=== PATIENT | male | born 1965 | race Caucasian/White ===

== ENCOUNTER 2016-12-11 19:52 | Inpatient (IN) | payer OTHER ==
[~2016-12-11] VITALS: Ht 175.3 cm; Wt 54.4 kg
--- NOTE | ~2016-12-11 | HC ---
[facility] [place] [address] CONSULTATION Name: THANIA BATES Room #: 211-P [facility] IN M.R.#: [id number] Admission: 12/11/16 Attend Phys: Jose Ames MD Discharge: 12/12/16 Date of : 65 Report #: [id number] THIS REPORT FOR: //name// CC: JERRELL physician/PCP Jose Ames DATE OF SERVICE: 12/12/2016 HISTORY OF PRESENT ILLNESS: The patient is a 51-year-old single white male who I was asked to see in the hospital today after he was noted to have elevated blood pressure. The history is obtained from the patient as well as some old records. He has a long history of peripheral arterial disease. He has had a history of peripheral arterial disease and previous abdominal aortic aneurysm. He has multiple risk factors for coronary artery disease, but never had demonstrated CAD. He had a nuclear stress test back in 2009 that showed no evidence of ischemia or infarction with ejection fraction 79%. He has had multiple procedures by Dr. Gunderson. He had previous repair of an abdominal aortic aneurysm using a stent graft and common iliac graft by Dr. Gunderson back in 2009. In 2012, he underwent bilateral lower extremity angiogram by Dr. Gunderson that showed patent grafts. On the left side, his common femoral showed a focal high-grade stenosis with dissection, but did not limit a flow. It was decided not to intervene at that time. Dr. Gunderson has told the patient most likely he will need additional surgery in the future. He does complain of exertional leg pain after one block. He has had no rest pain. He does have occasional chest tightness. It usually occurs with exertion. He denies any shortness of breath, palpitations, syncope, or edema. He apparently was just admitted to [facility] 2 weeks ago with elevated blood pressure. He was sent home. The patient states that he was last here in August of this year with lightheadedness. He was found to be hypertensive. The patient left the floor to smoke and never came back. He was signed out AMA. The patient came to the emergency room last night complaining of his headache being elevated. He states he had a headache. He also noticed some chest tightness. He was admitted for further evaluation and treatment. PAST MEDICAL HISTORY: Significant for stents placed in his renal arteries. He has a history of hypertension and hyperlipidemia. PAST SURGICAL HISTORY: His additional surgical history otherwise includes no other major surgical procedures. CURRENT MEDICATIONS: Apparently consists of carvedilol, nifedipine, Flomax, Pletal, aspirin, pravastatin, and Inspra. ALLERGIES: He has no known drug allergies. FAMILY HISTORY: Negative for heart disease. [facility] [address] [place] [address] CONSULTATION Name: THANIA BATES Room #: 211-P [facility] IN M.R.#: [id number] Admission: 12/11/16 Attend Phys: Jose Ames MD Discharge: 12/12/16 Date of : 65 Report #: [id number] SOCIAL HISTORY: He is . He is on disability. Lives with a daughter here in [place], [place]. Smokes a pack of cigarettes a day, used to work in construction. No history of alcohol use or drug abuse. REVIEW OF SYSTEMS: He apparently had left-sided weakness in the past, told he had a TIA. He denies chronic cough. He does have a history of indigestion. He has chronic kidney disease. No cancer. No psychiatric illness. PHYSICAL EXAMINATION: GENERAL: Revealed a middle-aged male, lying in bed, he appeared in no distress. VITAL SIGNS: He had a blood pressure last night at 250/128, pulse 70, he was afebrile. HEENT: He was anicteric. Conjunctivae are pink. Mucous membranes are moist. NECK: Veins do not appear distended, bilateral carotid bruits. CHEST: Clear to auscultation. HEART: Regular rate and rhythm. ABDOMEN: Soft, nontender. Bilateral bruits were noted. EXTREMITIES: Had no edema. Posterior tibial pulse 1+ bilaterally. SKIN: Cool and dry. NEUROLOGIC: Nonfocal. His ECG showed a sinus rhythm, left ventricular hypertrophy, repolarization changes. His workup in the emergency room last night included a chest x-ray that showed normal heart size, clear lung guardado. He had previous carotid Doppler study in 2009, that showed no significant internal carotid artery stenosis. He had lab work, sodium 139, creatinine 2.2. Liver function studies were normal. Troponins all 0.04. In September, cholesterol 228, triglyceride 112, HDL 39, LDL 167. White blood cell count 12.7, hemoglobin 11.3. IMPRESSION AND RECOMMENDATIONS: 1. Hypertension. The patient has a long history of hypertension. He was just admitted to [place] 2 weeks ago with elevated blood pressure. The patient currently appears to be on a beta sam and calcium sam. I would consider adding clonidine. 2. Hyperlipidemia. The patient is on a statin drug. 3. Peripheral arterial disease. The patient with persistent claudication. 4. Chronic kidney disease. 5. Tobacco abuse. 6. Bilateral carotid bruits. <ELECTRONICALLY SIGNED> By: Caio Calhoun MD, [facility] 12/13/16 0735 0830 2230 Caio Calhoun MD, FACC /nt
--- NOTE | ~2016-12-11 | EKG ---
[place] [address] [facility] [place] [address] ELECTROCARDIOGRAM REPORT Name: JAMES BATES Room #: 211-P ADM IN M.R.#: [id number] Admission: 12/11/16 Attend Phys: Jose Ames MD Discharge: Date of : 65 Report #: [id number] THIS REPORT FOR: //name// [facility] ED Test Date: 2016-12-11 Test Time: 20:01:25 Pat Name: JAMES BATES Department: Room: 211 Gender: M [employer] Supervisor: KIET : 1965 Requested By: James Mcadams Order Number: [id number] MD: Trace Haq Measurements Intervals [place] Rate: 75 P: 78 W[place]: 182 QRS: 70 QRSD: 99 T: 208 QT: 357 QTc: 399 Interpretive Statements Sinus rhythm JOSUE, consider biatrial enlargement Probable LVH with secondary repol abnrm Anterior ST elevation, probably due to LVH Compared to ECG 09/13/2016 18:39:48 Left ventricular hypertrophy now present Electronically Signed On 12-12-2016 9:03:19 CDT by Trace aHq [email or web address] <ELECTRONICALLY SIGNED> By: Trace Haq MD, [facility] 12/12/16 0903 00 00 Trace Haq MD, [facility] /EPI
--- NOTE | ~2016-12-11 | D ---
[facility] [place] [address] DISCHARGE SUMMARY Name: THANIA BATES Room #: 211-P [facility] IN M.R.#: [id number] Admission: 12/11/16 Attend Phys: Jose Ames MD Discharge: 12/12/16 Date of : 65 Report #: [id number] THIS REPORT FOR: //name// CC: JERRELL physician/PCP Jose Ames DATE OF SERVICE: 12/12/2016 The patient left against medical advice. He was admitted on 12/11/2016. He left against medical advice on 12/12/2016. ADMITTING DIAGNOSES: 1. Uncontrolled hypertensive urgency. 2. Chest pain. 3. Chronic kidney disease. 4. Diastolic heart failure. 5. Bilateral leg pain. HOSPITAL COURSE: This patient was admitted through the ER because of uncontrolled hypertension. He had a known history of renal artery stenosis. Stent placed in the past, had followed at the [facility], followed by Cardiology, Dr. Calhoun also. The patient was admitted because of last night chest pain. His blood pressure was 220 systolic, and needing further cardiac workup, better control of blood pressure. He was admitted. During this hospitalization, this morning, his blood pressure was 170-180s and did increase his medication, but after that I was notified by the RN on the floor that the patient had something he has to do at home. He basically signed AMA paper, and he did not want to stay in the hospital. He did not even wait for the papers to sign. He left the hospital without even telling anybody. He said all he does is leaving. He left against medical advice. <ELECTRONICALLY SIGNED> By: Douglas Harvey MD 12/15/16 0748 1729 54 Douglas Harvey MD /nt
[~2016-12-11 19:52] MED LIST: AMBIEN 5 MG TABL5 M1 PO; ATENOLOL; CARDURA8 MG PO; CARVEDILOL25 MG PO; CILOSTAZOL 100100 M1 PO; CLONIDINE HCL0.2 M2 PO; COREG PO; FERRO-TIME325 MG PO; FLOMAX0.4 MG PO; GLYCOLAX POWDER17 G1 PO; HYDRALAZINE 5050 MG PO; HYDROCHLOROTHIA25 M1 PO; INSPRA25 MG PO; KEFLEX500 MG PO; KLOR-CON 1010 MEQ; LISINOPRIL10 MG PO; LISINOPRIL20 MG PO; LISINOPRIL40 MG PO; LISINOPRIL5 MG PO; LO-DOSE ASPIRIN81 M1 PO; LOVASTAT20 PO; NICOTINE TRANSD21 M1 TD; NIFEDIPINE ER60 M1 PO; NOHOMEMEDICATIONS; NORCO 5-325 TA1 EACH PO; NORVASC 5 MG TAB5 MG PO; NORVASC10 MG PO; PERCOCET 5-3251 EACH PO; PRAVASTATIN SOD40 MG PO; RISPERDAL; VICODIN 5-5001 EACH PO; ZANTAC 150MG T150 M1 PO
[2016-12-11 19:59] VITALS: BP 250/128
[2016-12-11 20:33] LABS: ABSOLUTE NEUTROPHILS 8.9 thou/uL (1.4-8.2); BASOPHILS 1.2 % (0.0-2.0); EOSINOPHILS 2.6 % (0.0-3.0); HEMATOCRIT 35.2 % (42.0-52.0); HEMOGLOBIN 11.3 gm/dL (14.0-18.0); LYMPHOCYTES 17.9 % (24.0-44.0); MCH 24.5 pg (26.0-34.0); MCHC 32.1 g/dL (28.0-37.0); MCV 76.5 fL (80.0-100.0); MONOCYTES 8.4 % (1.0-8.0); PLATELET COUNT 282 thou/uL (150-400); POLYS 69.9 % (36.0-66.0); RDW 17.7 % (10.5-14.5); WBC 12.7 thou/uL (4.0-11.0)
[2016-12-11 20:35] LABS: MANUAL DIFF NO
[2016-12-11 20:38] LABS: ANION GAP 8 mmol/L (7-16); BUN 28 mg/dL (7-18); CALCIUM 8.3 mg/dL (8.5-10.1); CHLORIDE 103 mmol/L (98-107); CO2 28 mmol/L (21-32); CREATININE 2.2 mg/dL (0.7-1.3); GLUCOSE 96 mg/dL (74-106); POTASSIUM 3.4 mmol/L (3.5-5.1); SODIUM 139 mmol/L (136-145)
[2016-12-11 20:49] LABS: APTT 27.1 Seconds (24.5-32.8); PROTIME 10.4 Seconds (9.3-11.4)
[2016-12-11 20:57] LABS: ALBUMIN 3.3 g/dL (3.4-5.0); ALKALINE PHOSPHATASE 107 U/L (46-116); CK-MB MASS 0.7 ng/mL (<0.5-3.6); NT-PRO BRAIN NAT PEPTIDE 6043 pg/mL (<300); SGOT 17 U/L (15-37); SGPT 10 U/L (30-65); TOTAL BILIRUBIN 0.1 mg/dL (<0.1-1.0); TOTAL PROTEIN 7.4 g/dL (6.4-8.2); TROPONIN-I < 0.04 ng/mL (<0.04-0.07)
[2016-12-11 23:04] VITALS: BP 212/100
[2016-12-12 00:38] VITALS: BP 192/94
[2016-12-12 04:37] VITALS: BP 174/93
[2016-12-12 08:08] VITALS: BP 199/94
[2016-12-12 09:35] VITALS: BP 164/85
== END 2016-12-12 09:48 | disposition left against medical advice (07) | DRG 305 ==
LOC: ER 19:52 → EROBS 22:44 → 2N 12-12 00:03
PROVIDERS: Emergency Medicine
DX: I16.0 Hypertensive urgency (principal); I50.30 Unspecified diastolic (congestive) heart failure; I13.0 Hypertensive heart and chronic kidney disease with heart failure and stage 1 through stage 4 chronic kidney disease, or unspecified chronic kidney disease; R07.9 Chest pain, unspecified; M79.605 Pain in left leg; M79.604 Pain in right leg; N18.3 Chronic kidney disease, stage 3 (moderate); I73.9 Peripheral vascular disease, unspecified; E78.5 Hyperlipidemia, unspecified; F17.210 Nicotine dependence, cigarettes, uncomplicated; K21.9 Gastro-esophageal reflux disease without esophagitis; R09.89 Other specified symptoms and signs involving the circulatory and respiratory systems; Z53.21 Procedure and treatment not carried out due to patient leaving prior to being seen by health care provider; Z71.6 Tobacco abuse counseling; Z90.5 Acquired absence of kidney; Z79.899 Other long term (current) drug therapy